=== PATIENT | male | born 1960 | race Caucasian/White ===

== ENCOUNTER → 2016-09-18 | Outpatient (CLI) | payer OTHER ==
[~2016-09-18] MED LIST: ALBUTEROL0.63 MG/3 INH; ASPIRIN EC81 MG PO; COLACE 100MG C100 MG PO; COREG 12.5MG12.5 MG PO; COUMADIN10 MG PO; DALIRESP500 MCG PO; ELAVIL 10 MG TA10 MG PO; FERROUS SULFAT325 M2 PO; K-DUR TAB 10 M10 MEQ PO; LASIX 40 MG TAB40 MG PO; LEVOTHYROXINE25 MCG PO; LIPITOR TAB 1010 MG PO; LISINOPRIL40 MG PO; LOPRESSOR50 MG PO; METOPROLOL SUC100 MG PO; NORCO 10-325 T1 EACH PO; PAROXETINE HCL20 MG PO; PEPCID AC20 MG PO; SINGULAIR10 MG PO; SPIRIVA18 MCG INH; SYMBICORT 16010.2 GM INH; VENTOLIN HFA8 GM INH
== END ==
LOC: RT 15:43
DX: R09.02 Hypoxemia (principal)
CPT/HCPCS: 36600; 82803

== ENCOUNTER → 2016-09-18 | Outpatient (CLI) | payer OTHER | LOC: HEART 5 14:42 | DX: R09.02 Hypoxemia (principal); I50.23 Acute on chronic systolic (congestive) heart failure; J30.9 Allergic rhinitis, unspecified; I25.10 Atherosclerotic heart disease of native coronary artery without angina pectoris; Z86.79 Personal history of other diseases of the circulatory system; Z79.01 Long term (current) use of anticoagulants; J44.9 Chronic obstructive pulmonary disease, unspecified | CPT/HCPCS: 94060; 94729 ==

== ENCOUNTER → 2021-04-18 | Outpatient (CLI) | payer OTHER ==
[~2021-04-18] MED LIST changes: +BUMETANIDE1 MG PO; +BUMETANIDE2 MG PO; +BUSPAR 10MG10 MG PO; +CLEOCIN HCL300 MG PO; +COLCHICINE 0.60.6 MG PO; +COUMADIN7.5 MG PO; +DIGOXIN250 MCG PO; +ENTRESTO 24 MG1 EACH PO; +FLOMAX0.4 MG PO; +HYDROCODON-ACE1 EAC6 PO; +KENALOG OINT 0.15 GM TOP; +LEVAQUIN500 MG PO; +MULTIVITAMINS1 EAC1 PO; +NITROSTAT0.4 MG SL; +PROTONIX40 MG PO; +ULORIC 40 MG TA40 MG PO; +VISTARIL25 MG PO
== END ==
LOC: HEART 5 04-01 14:30
DX: R06.00 Dyspnea, unspecified (principal)
CPT/HCPCS: 93306